=== PATIENT | female | born 1980 | race Caucasian/White ===

== ENCOUNTER 2022-01-13 10:31 | Emergency (ER) | payer MEDICAID | END 2022-01-13 12:15 | disposition home or self-care (01) | LOC: JD.ED 10:31 | DX: M54.12 Radiculopathy, cervical region (principal); E11.9 Type 2 diabetes mellitus without complications; I10 Essential (primary) hypertension | CPT/HCPCS: 72040; 72040-26; 73030-26-LT; 73030-LT; 99283 ==